=== PATIENT | female | born 1985 | race Caucasian/White ===

== ENCOUNTER 2021-08-12 21:30 | Emergency (ER) | payer SELFPAY ==
[~2021-08-12] VITALS: Ht 172.7 cm; Wt 127.3 kg
[2021-08-12 21:50] VITALS: BP 187/102
[2021-08-12 22:15] LABS: BILIRUBIN,URINE NEGATIVE (NEG); CLARITY,URINE CLEAR; COLOR,URINE YELLOW; NITRITE,URINE NEGATIVE (NEG); PH,URINE 5.5 (<5.0-8.0); PROTEIN,URINE NEGATIVE (NEG-TRACE); UROBILINOGEN,URINE 0.2 mg/dL (0.2 mg/dL)
[2021-08-12 22:23] LABS: BACTERIA,URINE MODERATE /HPF (0-FEW)
--- NOTE | 2021-08-12 22:25 | ED.ADGEN ---
Past Medical History Past Surgical History: No Surgical History Smoking Status: Never Smoker Alcohol Use: Occasionally General Adult EDM: Chief Complaint: LOWER BACK PAIN OR INJURY HPI: HPI: Patient is a 36 year old female coming in for left-sided low back pain that radiates down her left leg to her thigh and lower leg, also feels the numbness/tingling down to her big toe. Patient denies any trauma or heavy lifting. Patient states she has had intermittent problems with back pain over the past few years but has been worse over the past 3 weeks. 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 Has been using massage and ibuprofen without improvement. Has not followed up with her primary care provider. Seen a chiropractor in the past. Denies any bowel bladder dysfunction, fevers or night sweats, no personal or family history of cancer, no bowel or bladder dysfunction. Review of Systems: Review of Systems: All other systems within normal limits except for as noted in the HPI Current Medications: Current Medications Medications (Trade) Dose Ordered Sig/Gm Start Time Stop Time Status Last Admin Dose Admin Hydromorphone HCl (Dilaudid) 2 mg 1X ONCE 08/12/21 22:30 08/12/21 22:31 DC 08/12/21 22:30 2 MG Ketorolac Tromethamine (Toradol Im) 60 mg 1X ONCE 08/12/21 22:30 08/12/21 22:31 DC 08/12/21 22:30 60 MG Allergies: Allergies: Allergies Coded Allergies Type Severity Reaction Last Updated Verified metronidazole Allergy Intermediate 08/12/21 Yes Physical Exam: PE: Constitutional: Well developed, well nourished, mild acute distress, non-toxic appearance, obese. [] HENT: Normocephalic, atraumatic, bilateral external ears normal, nose normal. [] Eyes: PERRLA, conjunctiva normal, no discharge. [] Neck: No rigidity, supple, no stridor. [] Cardiovascular: Regular rate and rhythm, brisk cap refill [] Lungs & Thorax: Non labored symmetric respirations, no tachypnea or respiratory distress [] Abdomen: Soft, nondistended. Skin: Warm, dry, no erythema, no rash. [] Back: Unremarkable, no step-off or deformity, tenderness around L3 L5 area with right-sided tenderness Extremities: No deformities, range of motion grossly intact, no lower extremity edema. [] Neurologic: Alert and oriented X 3, no focal deficits noted. No sensory deficit [] Psychologic: Affect normal, judgement normal, mood normal. [] Current Patient Data: Labs: Laboratory Tests Test 08/12/21 21:49 Urine Collection Type Unknown Urine Color Yellow Urine Clarity Clear Urine pH 5.5 (<5.0-8.0) Urine Specific [place] 1.010 (1.000-1.030) Urine Protein Negative mg/dL (NEG-TRACE) Urine Glucose (UA) Negative mg/dL (NEG) Urine Ketones (Stick) Negative mg/dL (NEG) Urine Blood Moderate (NEG) Urine Nitrite Negative (NEG) Urine Bilirubin Negative (NEG) Urine Urobilinogen Dipstick 0.2 mg/dL (0.2 mg/dL) Urine Leukocyte Esterase Moderate (NEG) Urine RBC 1-2 /HPF (0-2) Urine WBC 5-10 /HPF (0-4) Urine Squamous Epithelial Cells Mod /LPF Urine Bacteria Moderate /HPF (0-FEW) Urine Mucus Slight /LPF POC Urine HCG, Qualitative Hcg negative (Negative) Vital Signs: Vital Signs Date Time Temp Pulse Resp B/P (MAP) Pulse Ox O2 Delivery O2 Flow Rate FiO2 08/12/21 22:30 Room Air 08/12/21 21:50 98.2 88 18 187/102 (130) 100 98.2 EKG: EKG: [] Heart Score: C/O Chest Pain: No Risk Factors: Risk Factors: DM, Current or recent (<one month) smoker, HTN, HLP, family history of CAD, obesity. Risk Scores: Score 0 - 3: 2.5% MACE over next 6 weeks - Discharge Home Score 4 - 6: 20.3% MACE over next 6 weeks - Admit for Clinical Observation Score 7 - 10: 72.7% MACE over next 6 weeks - Early Invasive Strategies Radiology/Procedures: Radiology/Procedures: [facility] [address] [place] [address] IMAGING REPORT Signed PATIENT: TAMIKO CASTILLO NACCOUNT: [id number] : 1985 LOCATION: ER AGE: 36 SEX: F EXAM STATUS: REG ER ORD. PHYSICIAN: JEB JOSEPH MD REASON: left radiculopathy PROCEDURE: CT LUMBAR SPINE WO CONTRAST EXAM: CT lumbar spine without contrast. HISTORY: Left lower extremity radiculopathy. TECHNIQUE: CT of the lumbar spine was performed without intravenous contrast. One or more of the following individualized dose reduction techniques were utilized for this examination: 1. Automated exposure control. 2. Adjustment of the mA and/or kV according to patient size. 3. Use of iterative reconstruction technique. COMPARISON: None. FINDINGS: A minimal lumbar dextrocurvature is within normal limits. No fractures are identified. Degenerative disc disease is moderate at L4-5 and mild at L5- S1. From T12-L3, there is no stenosis. There is mild facet and ligamentum flavum hypertrophy at each level. At L3-4, there is a moderate posterior disc bulge with a small superimposed left paracentral protrusion. This narrows the left lateral recess mildly. At L4-5, there is a moderate posterior disc bulge. There appears to be a superimposed moderate to large left paracentral superior extrusion. Disc material extends superiorly in the anterior epidural space by 2.5 cm and it narrows the left lateral recess moderately throughout the L4 level. The left neural foramen is moderately narrowed. At L5-S1, there is a small posterior disc bulge. There is no stenosis. IMPRESSION: 1. A moderate to large left paracentral superior extrusion at L4-5 extends superiorly almost to the superior endplate of L4 and it narrows the left lateral recess moderate. MRI could further evaluate. 2. Small left paracentral protrusion at L3-4 resulting in mild left lateral recess stenosis. 3. Degenerative disc disease is moderate at L4-5 and moderate at L5-S1. Electronically signed by: Anmol Lopez MD (08/12/2021 10:55 PM) [facility] DICTATED and SIGNED BY: DEV LOPEZ MD DATE: 08/12/21 [id number] Course & Med Decision Making: Course & Med Decision Making Pertinent Labs and Imaging studies reviewed. (See chart for details) [] Dragon Disclaimer: Dragon Disclaimer: This electronic medical record was generated, in whole or in part, using a voice recognition dictation system. Departure Departure Impression: Primary Impression: L4-L5 disc bulge Additional Impression: UTI (urinary tract infection) Disposition: HOME / SELF CARE / HOMELESS Condition: STABLE Referrals: MCKINLEY KWONG MD (PCP) Patient Instructions: Herniated Disk Scripts Oxycodone/Apap 7.5-325 (PERCOCET 7.5-325 MG TABLET ) 1 Each Tablet 1 TAB PO PRN Q6HRS PRN for PAIN for 5 Days, #15 TAB 0 Refills Prov: JEB JOSEPH MD 08/12/21 Cephalexin (CEPHALEXIN) 500 Mg Tablet 1 TAB PO BID for antibiotic for 7 Days, #14 TAB Prov: JEB JOSEPH MD 08/12/21 Meloxicam (MELOXICAM) 15 Mg Tablet 1 TAB PO DAILY PRN for PAIN for 30 Days, #30 TAB 0 Refills Prov: JBE JOSEPH MD 08/12/21 Problem Qualifiers JEB JOSEPH MD Aug 12, 2021 22:25
[2021-08-12] MEDS ORDERED: KETOROLAC 60 MG/2 ML VIAL. IM ONE (22:30)
[2021-08-12] MEDS ORDERED: HYDROmorphone 2 MG/ML VIAL IM ONE (22:30)
--- NOTE | 2021-08-12 22:57 | RAD ---
EXAM: CT lumbar spine without contrast. HISTORY: Left lower extremity radiculopathy. TECHNIQUE: CT of the lumbar spine was performed without intravenous contrast. One or more of the foll owing individualized dose reduction techniques were utilized for this examination: 1. Automated exposure control. 2. Adjustment of the mA and/or kV according to patient size. 3. Use of iterative reconstruction technique. COMPARISON: None. FINDINGS: A minimal lumbar dextrocurvature is within normal limits. No fractures are identified. Dege nerative disc disease is moderate at L4-5 and mild at L5-S1. From T12-L3, there is no stenosis. There is mild facet and ligamentum flavum hypertrophy at each leve l. At L3-4, there is a moderate posterior disc bulge with a small superimposed left paracentral protrusi on. This narrows the left lateral recess mildly. At L4-5, there is a moderate posterior disc bulge. There appears to be a superimposed moderate to lar ge left paracentral superior extrusion. Disc material extends superiorly in the anterior epidural spa ce by 2.5 cm and it narrows the left lateral recess moderately throughout the L4 level. The left neur al foramen is moderately narrowed. At L5-S1, there is a small posterior disc bulge. There is no stenosis. IMPRESSION: 1. A moderate to large left paracentral superior extrusion at L4-5 extends superiorly almost to the s uperior endplate of L4 and it narrows the left lateral recess moderate. MRI could further evaluate. 2. Small left paracentral protrusion at L3-4 resulting in mild left lateral recess stenosis. 3. Degenerative disc disease is moderate at L4-5 and moderate at L5-S1. Electronically signed by: Anmol Lopez MD (08/12/2021 10:55 PM) [facility]
[2021-08-12] MEDS ORDERED: CEPH500T PO (23:15)
[2021-08-12] MEDS ORDERED: MELO15TA23 PO (23:15)
[2021-08-12] MEDS ORDERED: OXYC1TAB19 PO (23:15)
== END 2021-08-12 23:45 | disposition home or self-care (01) ==
LOC: ER 21:30
DX: N39.0 Urinary tract infection, site not specified (principal); M51.36 Other intervertebral disc degeneration, lumbar region; Z88.3 Allergy status to other anti-infective agents
CPT/HCPCS: 72131; 81001; 81025; 87086; 96372; 99284; J1170; J1885